=== PATIENT | female | born 1980 | race Caucasian/White ===

== ENCOUNTER 2020-08-10 16:28 | Emergency (ER) | payer BC ==
--- OUTSIDE RECORDS SUMMARY | 2020-08-10 16:31 | XMS REPORT | Continuity of Care Document ---
:1980 Author Organization [facility] t Address [address] [place] [id number] Care Team Providers Name Role Phone Unavailable Unavailable Unavailable Problems This patient has no known problems. Allergies, Adverse Reactions, Alerts This patient has no known allergies or adverse reactions. Medications This patient has no known medications. Procedures This patient has no known procedures. Results This patient has no known results.
[2020-08-10] MEDS ORDERED: HYDROCODONE/APAP 10/325 TAB ONE (20:33)
--- NOTE | 2020-08-10 21:05 | RAD REPORT ---
EXAM DESCRIPTION: RAD - Ankle Right 3 View - 08/10/2020 8:41 pm CLINICAL HISTORY: PAIN COMPARISON: No comparisons FINDINGS: Moderate soft tissue swelling is seen along the medial aspect of the ankle. Tiny calcaneal spurs are noted. No acute fracture or dislocation is evident.
--- NOTE | 2020-08-10 21:05 | RAD REPORT ---
EXAM DESCRIPTION: RAD - Ankle Left 3 View - 08/10/2020 8:41 pm CLINICAL HISTORY: PAIN COMPARISON: No comparisons FINDINGS: Moderate soft tissue swelling is seen along the medial aspect of the ankle. No acute fract ure or dislocation is seen.
--- NOTE | 2020-08-10 21:06 | RAD REPORT ---
EXAM DESCRIPTION: RAD - Knee Right 3 View - 08/10/2020 8:41 pm CLINICAL HISTORY: PAIN COMPARISON: No comparisons FINDINGS: Small suprapatellar joint effusion. No acute fracture or dislocation is seen.
--- NOTE | 2020-08-10 21:07 | RAD REPORT ---
EXAM DESCRIPTION: RAD - Knee Left 3 View - 08/10/2020 8:42 pm CLINICAL HISTORY: PAIN COMPARISON: No comparisons FINDINGS: Mild medial compartment space narrowing is seen. No fracture or dislocation is seen. Small suprapatellar joint effusion.
--- NOTE | 2020-08-10 21:10 | RAD REPORT ---
EXAM DESCRIPTION: US - Extrem Venous W Compress Kirill - 08/10/2020 8:59 pm CLINICAL HISTORY: PAIN Bilateral leg edema and swelling. COMPARISON: No comparisons TECHNIQUE: Real-time sonographic interrogation of the left and right lower extremity deep venous sys tems was performed. FINDINGS: Normal compressibility, flow augmentation, phasic flow and spontaneous flow is identified in both the left and right lower extremity deep venous systems. IMPRESSION: No sonographic evidence of left or right lower extremity deep venous thrombosis.
--- NOTE | 2020-08-10 21:16 | ER ---
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 Coronavirus screen: At this time, the client does not indicate any symptoms associated with coronavirus-19. Ebola Screen: Patient negative for fever greater than or equal to 101.5 degrees Fahrenheit, and additional compatible Ebola Virus Disease symptoms. Initial Sepsis Screen: Does the patient meet any 2 criteria? No. Patient's initial sepsis screen is negative. Does the patient have a suspected source of infection? No. Patient's initial sepsis screen is negative. Risk Assessment: Do you want to hurt yourself or someone else? Patient reports no desire to harm self or others. Onset of symptoms was August 10, 2020. 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 - Social history:: Smoking status: Patient reports the use of cigarette tobacco products, denies chronic smoking, but will smoke occasionally. Screenin:29 Abuse screen: Denies threats or abuse. Denies injuries from another. Nutritional zb screening: No deficits noted. Tuberculosis screening: No symptoms or risk factors identified. Fall Risk None identified. Assessment: 19:27 General: Appears uncomfortable, Behavior is calm, cooperative, appropriate for age. zb Pain: Complains of pain in right knee, anterior aspect of right ankle, left knee and anterior aspect of left ankle Pain currently is 6 out of 10 on a pain scale. Quality of pain is described as aching, throbbing, Pain began 1 mth ago Aggravated by repositioning, weight bearing. Neuro: Level of Consciousness is awake, alert, obeys commands, Oriented to person, place, time, situation. Cardiovascular: Patient's skin is warm and dry. Respiratory: Airway is patent Respiratory effort is even, unlabored, Respiratory pattern is regular, symmetrical. GI: No signs and/or symptoms were reported involving the gastrointestinal system. : No signs and/or symptoms were reported regarding the genitourinary system. Derm: Skin is intact, is healthy with good turgor, Skin is dry, Skin is normal, Skin temperature is warm. Derm:. Musculoskeletal: Circulation, motion, and sensation intact. Range of motion: intact in all extremities. Musculoskeletal: Swelling present in anterior aspect of right ankle and anterior aspect of left ankle. 20:05 Reassessment: ECP at bedside. zb 21:20 Reassessment: Patient appears in no apparent distress at this time. Patient and/or zb family updated on plan of care and expected duration. Pain level reassessed. Patient is alert, oriented x 3, equal unlabored respirations, skin warm/dry/pink. ECP at bedside. 21:27 Reassessment: Patient appears in no apparent distress at this time. Patient and/or zb family updated on plan of care and expected duration. Pain level reassessed. Patient is alert, oriented x 3, equal unlabored respirations, skin warm/dry/pink. d/c instructions given. patient ambulated gait even and steady upon discharge. Vital Signs: 17:24 BP 153 / 108; Pulse 95; Resp 17 S; Temp 97.6(TE); Pulse Ox 99% on R/A; Weight 72.57 kg jd3 (R); Height 5 ft. 2 in. (157.48 cm) (R); Pain 6/10; 20:00 BP 123 / 94; Pulse 88; Resp 16; Pulse Ox 100% on R/A; zb 17:24 Body Mass Index 29.26 (72.57 kg, 157.48 cm) jd3 ED Course: 16:30 Patient arrived in ED. as 17:22 Triage completed. jd3 17:25 Arm band placed on. jd3 19:13 Santiago Rdz NP is PHCP. pm1 19:21 Jina Zhang, SHYANNE is Primary Nurse. zb 19:29 Patient has correct armband on for positive identification. Pulse ox on. NIBP on. Door zb closed. Noise minimized. Warm blanket given. 20:41 Knee Left 3 View XRAY In Process Unspecified. EDMS 20:41 Knee Right 3 View XRAY In Process Unspecified. EDMS 20:41 Ankle Right 3 View XRAY In Process Unspecified. EDMS 20:41 Ankle Left 3 View XRAY In Process Unspecified. EDMS 20:58 Chavez Cota MD is Attending Physician. pm1 20:59 Extrem Venous W Compression Kirill US In Process Unspecified. EDMS 21:26 No provider procedures requiring assistance completed. Patient did not have IV access zb during this emergency room visit. Administered Medications: 20:15 Drug: Glade (HYDROcodone-acetaminophen) 10 mg-325 mg 1 tabs {Note: RAss +0.} Route: PO; zb 21:00 Follow up: Response: No adverse reaction; Pain is decreased; RASS: Alert and Calm (0) zb Outcome: 21:16 Discharge ordered by MD. pm1 21:26 Discharged to home ambulatory, with family. zb 21:26 Condition: stable 21:26 Discharge instructions given to patient, family, Instructed on discharge instructions, follow up and referral plans. medication usage, Demonstrated understanding of instructions, follow-up care, medications, Prescriptions given X 1. 21:27 Patient left the ED. zb Signatures: Dispatcher [employer] EDMilvia Brown as Santiago Rdz NP [employer] RETAIL SALES MANAGER pm1 Kalpesh Plata RN RN jd3 Jina Zhang, SHYANNE RN zb
--- NOTE | 2020-08-10 21:16 | EDPHYS ---
Physician Documentation [facility] Name: Sugey Inman Age: 40 yrs Sex: Female : 1980 Arrival Date: 08/10/2020 Time: 16:30 Bed 30 Private MD: TUNDE Physician Chavez Cota HPI: 08/10 20:09 This 40 yrs old Female presents to ER via Ambulatory with complaints of Knee pm1 Pain, Ankle Pain. 20:58 The patient presents with pain. The complaints affect the right knee and left knee pm1 right ankle and left ankle. Context: The problem was sustained at an unknown site, resulted from an unknown cause, the patient can fully bear weight, the patient is able to ambulate, Problem is a result from a previous injury: No. Onset: The symptoms/episode began/occurred multiple months. Modifying factors: The symptoms are alleviated by elevating leg, the symptoms are aggravated by weight bearing, bending knee. Associated signs and symptoms: Pertinent positives: calf tenderness, of the right calf and left calf. Treatment prior to arrival includes: no previous treatment. Severity of symptoms: in the emergency department the symptoms are actually worse. The patient has not experienced similar symptoms in the past. The patient has not recently seen a physician. 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 - Social history:: Smoking status: Patient reports the use of cigarette tobacco products, denies chronic smoking, but will smoke occasionally. ROS: 20:58 Constitutional: Negative for fever, chills, and weight loss, Cardiovascular: Negative pm1 for chest pain, palpitations, and edema, Respiratory: Negative for shortness of breath, cough, wheezing, and pleuritic chest pain, Abdomen/GI: Negative for abdominal pain, nausea, vomiting, diarrhea, and constipation, Back: Negative for injury and pain. 20:58 Skin: Negative for injury, rash, and discoloration, Neuro: Negative for headache, weakness, numbness, tingling, and seizure. 20:58 MS/extremity: Positive for pain, of the right knee and left knee and right ankle and left ankle, Negative for decreased range of motion, deformity. Exam: 20:58 Constitutional: This is a well developed, well nourished patient who is awake, alert, pm1 and in no acute distress. Head/Face: Normocephalic, atraumatic. Chest/axilla: Normal chest wall appearance and motion. Nontender with no deformity. No lesions are appreciated. 20:58 Eyes: Pupils equal round and reactive to light, extra-ocular motions intact. Lids and lashes normal. Conjunctiva and sclera are non-icteric and not injected. Cornea within normal limits. Periorbital areas with no swelling, redness, or edema. 20:58 Skin: Warm, dry with normal turgor. Normal color with no rashes, no lesions, and no evidence of cellulitis. 20:58 ENT: External ear(s): are unremarkable, Mouth: Oral mucosa: normal, pink and intact, moist. 20:58 Cardiovascular: Exam negative for acute changes, Rate: normal, Rhythm: regular, Pulses: no pulse deficits are appreciated. 20:58 Respiratory: Exam negative for acute changes, respiratory distress, shortness of breath. 20:58 Abdomen/GI: Inspection: abdomen appears normal, Palpation: abdomen is soft and non-tender, in all quadrants. 20:58 Musculoskeletal/extremity: Extremities: grossly normal except: noted in the right knee and left knee: tenderness, There is no evidence of decreased ROM, deformity, ROM: full active range of motion, in the right knee, left knee, right ankle, left ankle, Circulation is intact in all extremities. Sensation intact. 20:58 Neuro: Exam negative for acute changes, Orientation: is normal, Mentation: is normal, Motor: is normal, moves all fours. Vital Signs: 17:24 BP 153 / 108; Pulse 95; Resp 17 S; Temp 97.6(TE); Pulse Ox 99% on R/A; Weight 72.57 kg jd3 (R); Height 5 ft. 2 in. (157.48 cm) (R); Pain 6/10; 20:00 BP 123 / 94; Pulse 88; Resp 16; Pulse Ox 100% on R/A; zb 17:24 Body Mass Index 29.26 (72.57 kg, 157.48 cm) jd3 MDM: 19:14 Patient medically screened. pm1 21:15 Data reviewed: vital signs. Data interpreted: Pulse oximetry: on room air is 100 %. pm1 Interpretation: normal. Counseling: I had a detailed discussion with the patient and/or guardian regarding: the historical points, exam findings, and any diagnostic results supporting the discharge/admit diagnosis, radiology results, the need for outpatient follow up, a orthopedic surgeon, to return to the emergency department if symptoms worsen or persist or if there are any questions or concerns that arise at home. 08/10 20:08 Order name: Knee Left 3 View XRAY; Complete Time: 21:13 pm1 08/10 20:08 Order name: Knee Right 3 View XRAY; Complete Time: 21:13 pm1 08/10 20:08 Order name: Ankle Right 3 View XRAY; Complete Time: 21:13 pm1 08/10 20:08 Order name: Ankle Left 3 View XRAY; Complete Time: 21:13 pm1 08/10 20:08 Order name: Extrem Venous W Compression Kirill US; Complete Time: 21:13 pm1 Administered Medications: 20:15 Drug: Vivian (HYDROcodone-acetaminophen) 10 mg-325 mg 1 tabs {Note: RAss +0.} Route: PO; zb 21:00 Follow up: Response: No adverse reaction; Pain is decreased; RASS: Alert and Calm (0) zb Disposition: 08/11 06:49 Co-signature as Attending Physician, Chavez Cota MD I agree with the assessment and ayde plan of care. Disposition: 08/10/20 21:16 Discharged to Home. Impression: Pain in left ankle and joints of left foot, Pain in right ankle and joints of right foot, Pain in left knee, Pain in right knee. - Condition is Stable. - Discharge Instructions: Elastic Bandage and RICE, Arthritis, Knee Pain, Ankle Pain. - Prescriptions for Tramadol 50 mg Oral Tablet - take 1 tablet by ORAL route every 8 hours as needed; 12 tablet. - Medication Reconciliation Form, Thank You Letter, Antibiotic Education, Prescription Opioid Use form. - Follow up: Emergency Department; When: As needed; Reason: Worsening of condition. Follow up: Private Physician; When: 2 - 3 days; Reason: Recheck today's complaints, Continuance of care, Re-evaluation by your physician. - Problem is new. - Symptoms have improved. Signatures: Dispatcher [employer] EDChavez Pelayo MD MD cha Marinas, Patrick, TOOLS ADMINISTRATOR TOOLS ADMINISTRATOR pm1 Kalpesh Plata RN RN Jina Grullon RN RN zb Corrections: (The following items were deleted from the chart) 08/10 21:27 21:16 08/10/2020 21:16 Discharged to Home. Impression: Pain in left ankle and joints of zb left foot; Pain in right ankle and joints of right foot; Pain in left knee; Pain in right knee. Condition is Stable. Forms are Medication Reconciliation Form, Thank You Letter, Antibiotic Education, Prescription Opioid Use. Follow up: Emergency Department; When: As needed; Reason: Worsening of condition. Follow up: Private Physician; When: 2 - 3 days; Reason: Recheck today's complaints, Continuance of care, Re-evaluation by your physician. Problem is new. Symptoms have improved. pm1
[2020-08-10 22:39] VITALS: TEMP 97.6
[2020-08-10 22:40] VITALS: BP 123/94; O2SAT 100
== END 2020-08-10 21:27 | disposition home or self-care (01) ==
LOC: ER 16:28
DX: M25.572 Pain in left ankle and joints of left foot (principal); M25.571 Pain in right ankle and joints of right foot; M25.562 Pain in left knee; M25.561 Pain in right knee; I10 Essential (primary) hypertension; F17.210 Nicotine dependence, cigarettes, uncomplicated
CPT/HCPCS: 93970; 99284